=== PATIENT | female | born 1985 | race Two or more races ===

== ENCOUNTER 2020-07-08 20:32 | Inpatient (IN) | payer MEDICAID ==
[~2020-07-08] VITALS: Ht 172.7 cm; Wt 78.0 kg
[2020-07-08] MEDS ORDERED: MORPHINE SULFATE 4 MG/ML CPJ (NOT FOR IM USE) IV STA (21:13)
[2020-07-08] MEDS ORDERED: SODIUM CHLORIDE 0.9% 1,000 ML IV ONE (21:13)
[2020-07-08] MEDS ORDERED: ONDANSETRON HCL 4MG/2ML INJ IV STA (21:13)
[2020-07-08] MEDS ORDERED: FAMOTIDINE 20MG/2ML VIAL IV STA (21:13)
[2020-07-08 21:30] LABS: BASOPHILS % 0.4 % (0.0-2.0); EOSINOPHILS % 0.3 % (0.0-5.0); HEMATOCRIT. 42.3 % (36.0-48.0); HEMOGLOBIN. 14.5 g/dL (12.0-16.0); LYMPHOCYTES % 17.6 % (20.0-50.0); MEAN CORPUSCULAR HEMOGLOBIN 29.2 pg (28.0-32.0); MEAN CORPUSCULAR VOLUME 85.3 fL (81.0-99.0); MEAN PLATELET VOLUME 8.3 fl (7.4-10.4); MONOCYTES % 5.6 % (2.0-8.0); NEUTROPHILS % 76.1 % (40.0-76.0); PLATELET 303 x1000/uL (130-400); RED BLOOD CELL COUNT 4.96 mill/uL (4.2-5.4); RED CELL DISTRIBUTION WIDTH 13.3 % (11.6-14.6)
[2020-07-08 21:38] LABS: PROTHROMBIN TIME 10.5 sec (9.6-11.0)
[2020-07-08 21:45] LABS: CHLORIDE 104 mEq/L (98-107)
[2020-07-08 21:50] LABS: ETHANOL BLOOD < 10 mg/dL
[2020-07-08 22:06] LABS: HCG SCREEN NEGATIVE
[2020-07-08] MEDS ORDERED: PIPERACILLIN/TAZ 3.375G PREMIX 50 ML IV ONE (23:30)
[2020-07-08 23:57] LABS: CLARITY URINE CLOUDY (CLEAR); COLOR URINE DK YELLOW (YELLOW); KETONES URINE NEGATIVE (NEGATIVE); LEUKOCYTE ESTERASE URINE 1+ (NEGATIVE); NITRITE URINE NEGATIVE (NEGATIVE); OCCULT BLOOD URINE NEGATIVE (NEGATIVE); PH URINE 7.5 (4.5-8.0); PROTEIN URINE NEGATIVE (NEGATIVE); SPECIFIC GRAVITY URINE 1.015 (1.005-1.030)
[2020-07-09 00:21] LABS: *AMPHETAMINES SCREEN URINE NEGATIVE (NEGATIVE); *BARBITURATES SCREEN URINE NEGATIVE (NEGATIVE); *BENZODIAZEPINES SCREEN URINE NEGATIVE (NEGATIVE)
[2020-07-09 00:22] LABS: *COCAINE SCREEN URINE NEGATIVE (NEGATIVE); METHADONE URINE SCREEN NEGATIVE (NEGATIVE); PHENCYCLIDINE URINE SCREEN NEGATIVE (NEGATIVE)
[2020-07-09 00:42] LABS: CANNABINOID URINE SCREEN PRESUMTIVE POSITIVE (NEGATIVE); OPIATES URINE SCREEN PRESUMTIVE POSITIVE (NEGATIVE)
[2020-07-09] MEDS ORDERED: ONDANSETRON HCL 4MG/2ML INJ IV PRN (03:30)
[2020-07-09] MEDS ORDERED: HYDROMORPHONE HCL/PF 2MG/ML CPJ IV PRN (03:30)
[2020-07-09 04:21] VITALS: BP 119/58
[2020-07-09] MEDS: DEXT 5%/0.45% NACL 1000ML 1,000 ML IV SCH ×2 (06:49→16:28)
[2020-07-09 08:00] VITALS: BP 117/68
[2020-07-09] MEDS ORDERED: PIPERACILLIN/TAZ 3.375G PREMIX 50 ML IV SCH (08:00)
[2020-07-09] MEDS ORDERED: PIPERACILLIN/TAZOBACTAM 3.375 G in DEXT 5% WATER 100 ML IV SCH (08:00)
[2020-07-09] MEDS: ENOXAPARIN 40MG/0.4ML SYR SUBCUT SCH (08:19)
[2020-07-09 12:00] VITALS: BP 115/67
[2020-07-09] MEDS: PIPERACILLIN/TAZOBACTAM 3.375 G in DEXT 5% WATER 100 ML IV SCH ×2 (15:57→23:22)
[2020-07-09 16:00] VITALS: BP 113/66
[2020-07-09 20:00] VITALS: BP 101/59
[2020-07-09] MEDS ORDERED: ZOLPIDEM TARTRATE 5MG TABLET PO PRN (21:15)
[2020-07-10] VITALS: BP 125/69
[2020-07-10 04:00] VITALS: BP 108/53
[2020-07-10] MEDS: DEXT 5%/0.45% NACL 1000ML 1,000 ML IV SCH (05:54)
[2020-07-10] MEDS: PIPERACILLIN/TAZOBACTAM 3.375 G in DEXT 5% WATER 100 ML IV SCH ×2 (05:54→11:52)
[2020-07-10 08:00] VITALS: BP 112/64
[2020-07-10] MEDS: ENOXAPARIN 40MG/0.4ML SYR SUBCUT SCH (09:02)
[2020-07-10 12:00] VITALS: BP 118/70
[2020-07-10 13:08] LABS: BASOPHILS % 0.9 % (0.0-2.0); EOSINOPHILS % 2.8 % (0.0-5.0); HEMATOCRIT. 39.8 % (36.0-48.0); HEMOGLOBIN. 13.4 g/dL (12.0-16.0); LYMPHOCYTES % 41.3 % (20.0-50.0); MEAN CORPUSCULAR VOLUME 85.7 fL (81.0-99.0); MEAN PLATELET VOLUME 8.4 fl (7.4-10.4); MONOCYTES % 5.4 % (2.0-8.0); NEUTROPHILS % 49.6 % (40.0-76.0); PLATELET 293 x1000/uL (130-400); RED BLOOD CELL COUNT 4.64 mill/uL (4.2-5.4); RED CELL DISTRIBUTION WIDTH 13.5 % (11.6-14.6)
[2020-07-10 13:49] LABS: HEPATITIS B SURFACE ANTIGEN NEGATIVE
[2020-07-10 14:08] VITALS: BP 118/70
[2020-07-10 14:18] LABS: CHLORIDE 103 mEq/L (98-107)
[2020-07-10 14:19] LABS: HEPATITIS A AB IGM NEGATIVE (NEGATIVE)
== END 2020-07-10 15:28 | disposition home or self-care (01) ==
LOC: ER 20:32 → ENRESERV 07-09 03:36 → 6EST 07-09 04:26
PROVIDERS: ADMIT Hospitalist; ATTEND Hospitalist
DX: K80.62 Calculus of gallbladder and bile duct with acute cholecystitis without obstruction (principal); F17.200 Nicotine dependence, unspecified, uncomplicated; I10 Essential (primary) hypertension; K59.00 Constipation, unspecified; K76.0 Fatty (change of) liver, not elsewhere classified; N39.0 Urinary tract infection, site not specified
CPT/HCPCS: 36415; 76705; 80053; 80076; 80305; 80320; 81003; 82248; 84703; 85025; 86705; 86709; 86803; 87340; 93005; 93970; 99285; J1650; J2270; J2405; J2543; J3490; J7030; J7060; G0480